=== PATIENT | male | born 1955 | race African-American/Black ===

== ENCOUNTER 2018-11-24 15:45 | Emergency (ER) | payer OTHER ==
[~2018-11-24] VITALS: Ht 176.5 cm; Wt 66.2 kg
[~2018-11-24 15:45] MED LIST: BACL10TA PO; CETI10TA34 PO; CYCL10TA7 PO; FAMO-96 PO; FINA5TAB4 PO; FLUT16SP17 NASAL; IPRA3AMP29 INHALATION; MAG355OR15 PO; METO25TA4 PO; NITR0.4T39 SL; ONDA4SOL2 PO; OXYC-284 PO; RTPRO5 INH; SIMV20TA2 PO; WARF1TAB PO; WARF2TAB PO
[2018-11-24 15:55] VITALS: BP 124/87; PULSE 103; RESP 18; Ht 176.5 cm; Wt 66.2 kg
[2018-11-24] MEDS ORDERED: ONDA4TAB14 PO (18:30)
[2018-11-24] MEDS ORDERED: HYDR-4011 PO (18:30)
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
== END 2018-11-24 18:31 | disposition home or self-care (01) ==
LOC: E/R 15:45
DX: M79.671 Pain in right foot (principal); J44.9 Chronic obstructive pulmonary disease, unspecified; I10 Essential (primary) hypertension; Z79.01 Long term (current) use of anticoagulants; Z86.73 Personal history of transient ischemic attack (TIA), and cerebral infarction without residual deficits
CPT/HCPCS: 73610; 73630; Z7502